=== PATIENT | male | born 1960 | race Caucasian/White ===

== ENCOUNTER → 2020-10-15 | Outpatient (CLI) | payer BC, OTHER ==
[~2020-10-15] MED LIST: BENA20TA54 PO; CETI10CA PO; OMEP-110 PO; RIVA20TA PO; SERT50TA28 PO
[2020-10-15 08:55] LABS: BASOPHILS % (AUTO) 1 % (0-1); EOSINOPHILS % (AUTO) 3 % (1-7); LYMPHOCYTES % (AUTO) 43 % (22-44); MEAN CORPUSCULAR HEMOGLOBIN 30.4 pg (27.5-34.5); MEAN CORPUSCULAR HGB CONC 33.9 g/dL (33.2-36.2); MEAN PLATELET VOLUME 7.4 fL (7.4-10.4); MONOCYTES % (AUTO) 12 % (2-9); NEUTROPHILS % (AUTO) 42 % (42-75); PLATELET COUNT 317 x10^3/uL (130-400); RED BLOOD COUNT 5.37 x10^6/uL (4.38-5.82); RED CELL DISTRIBUTION WIDTH 13.7 % (9.4-14.8)
[2020-10-15 09:01] LABS: ALANINE AMINOTRANSFERASE 38 U/L (12-78); ALBUMIN 3.8 g/dL (3.4-5.0); ANION GAP 3 mmol/L (5-15); CHLORIDE 107 mmol/L (98-107); CREATININE 1.03 mg/dL (0.7-1.3)
[2020-10-15 09:03] LABS: ALKALINE PHOSPHATASE 99 U/L (45-117); BILIRUBIN,TOTAL 0.8 mg/dL (0.2-1.0); TOTAL PROTEIN 7.3 g/dL (6.4-8.2)
[2020-10-15 09:28] LABS: MD SCAN
== END | disposition home or self-care (01) ==
LOC: STAR 07:51
PROVIDERS: ATTEND Surgery
DX: Z01.812 Encounter for preprocedural laboratory examination (principal); Z20.822 Contact with and (suspected) exposure to COVID-19
CPT/HCPCS: 36415; 80053; 85025; U0003; U0005

== ENCOUNTER 2020-10-21 11:58 | Day surgery (SDC) | payer BC, OTHER ==
[~2020-10-21] VITALS: Ht 172.7 cm; Wt 100.2 kg
[2020-10-21] MEDS ORDERED: VISIPAQUE 270 MG/ML, 50ML BOTTLE ONE (12:00)
[2020-10-21] MEDS ORDERED: LACTATED RINGERS 1,000 ML IV SCH (13:00)
[2020-10-21] MEDS ORDERED: CHLORHEXIDINE 15 ML UDC PO ONE (13:00)
[2020-10-21] MEDS ORDERED: CHLORHEXIDINE 15 ML UDC ONE (13:07)
[2020-10-21 13:33] VITALS: BP 131/78
[2020-10-21] MEDS ORDERED: MEPERIDINE/PF 25MG/0.5ML IVPush PRN (14:00)
[2020-10-21] MEDS ORDERED: ACETAMINOPHEN 325 MG TABLET PO PRN (14:00)
[2020-10-21] MEDS ORDERED: ONDANSETRON 2MG/ML, 2ML IVPush PRN (14:00)
[2020-10-21] MEDS ORDERED: hydrALAzine 20 MG/ML, 1ML IV PRN (14:00)
[2020-10-21] MEDS ORDERED: FENTANYL PF 100 MCG/2ML IV PRN (14:00)
[2020-10-21] MEDS ORDERED: HYDROmorphone 1 MG/ML, 1ML INJ IVPush PRN (14:00)
[2020-10-21] MEDS ORDERED: DIPHENHYDRAMINE 50 MG/ML, 1ML IVPush PRN (14:00)
[2020-10-21] MEDS ORDERED: LABETALOL 5MG/ML, 20ML IV PRN (14:00)
[2020-10-21] MEDS ORDERED: OXYcodone 5 MG/5 ML ORAL.SOL UDC PO PRN (14:00)
[2020-10-21] MEDS ORDERED: DIAZEPAM 5 MG/ML, 2ML IVPush PRN (14:00)
[2020-10-21] MEDS ORDERED: PROPOFOL 10 MG/ML, 20ML ONE (14:17)
[2020-10-21] MEDS ORDERED: MIDAZOLAM 1 MG/ML, 2ML ONE (14:19)
[2020-10-21] MEDS ORDERED: FENTANYL PF 250 MCG/5ML ONE (14:19)
[2020-10-21] MEDS ORDERED: EPHEDRINE 50 MG/ML, 1ML ONE (14:22)
[2020-10-21] MEDS ORDERED: CEFAZOLIN 1,000 MG ONE (14:22)
== END 2020-10-21 17:00 | disposition home or self-care (01) ==
LOC: OUT 11:58
PROVIDERS: ATTEND Surgery
DX: I82.522 Chronic embolism and thrombosis of left iliac vein (principal); I10 Essential (primary) hypertension; E11.9 Type 2 diabetes mellitus without complications; F32.9 Major depressive disorder, single episode, unspecified; K21.9 Gastro-esophageal reflux disease without esophagitis; E78.2 Mixed hyperlipidemia; G47.33 Obstructive sleep apnea (adult) (pediatric); E66.3 Overweight; Z79.01 Long term (current) use of anticoagulants; Z79.899 Other long term (current) drug therapy; Z88.2 Allergy status to sulfonamides; Z96.652 Presence of left artificial knee joint; Z83.3 Family history of diabetes mellitus; Z82.49 Family history of ischemic heart disease and other diseases of the circulatory system
CPT/HCPCS: 36012; 75820; 76937; C1769; C1894; J0690; J2250; J2704; J3010; J7120; Q9966